=== PATIENT | female | born 1935 | race Caucasian/White ===

== ENCOUNTER 2022-08-04 11:18 | Inpatient (IN) ==
--- NOTE | 2022-08-04 12:07 | XRay Report ---
SINGLE VIEW CHEST CLINICAL HISTORY: Dyspnea FINDINGS: An AP, portable, upright chest radiograph is compared to study dated 08/03/2022. The heart is enlarged noting atherosclerotic calcification of the thoracic aorta. There is prominence of the pu lmonary vascular appear There are small pleural effusions and bibasilar consolidation. No pneumothora x is seen. The skeletal structures are osteopenic. The bony thorax is grossly intact. Arthritic cabrera e is seen in the shoulders. Generative change in scoliosis is noted in the thoracic spine. IMPRESSION: 1. Small pleural effusions and bibasilar consolidation. This is similar to yesterday. 2. Cardiomegaly with prominence of the pulmonary vasculature. Correlate clinically for evidence of fl uid overload/congestive change. ACT 112: Negative or not required by law. Electronically signed by: Rhett Gaxiola M.D. 08/04/2022 12:06 PM
[2022-08-04 13:05] LABS: Basophils # (auto) 0.04 K/uL (0-0.2); Basophils % (auto) 0.5 %; Eosinophils # (auto) 0.03 K/uL (0-0.50); Eosinophils % (auto) 0.4 %; Hematocrit (blood only) 34.7 % (34.1-44.9); Hemoglobin 11.7 g/dl (12.0-16.0); Immature Granulocytes # (auto) 0.02 K/uL (0.00-0.02); Immature Granulocytes % (auto) 0.3 %; Lymphocytes # (auto) 1.39 K/uL (1.2-3.4); Lymphocytes % (auto) 18.2 %; Mean Corpuscular Hemoglobin 31.4 pg (25.0-34.0); Mean Corpuscular Hgb Conc 33.7 g/dL (32.0-36.0); Mean Platelet Volume 10.3 fL (9.4-12.3); Monocytes # (auto) 0.49 K/uL (0.24-0.82); Monocytes % (auto) 6.4 %; Neutrophils # (auto) 5.65 K/uL (1.4-6.5); Neutrophils % (auto) 74.2 %; Platelet Count 300 K/uL (130-400); RDW Coefficient of Variation 13.2 % (11.5-14.5); RDW Standard Deviation 45.2 fL (36.4-46.3); Red Blood Count 3.73 M/uL (3.93-5.22); White Blood Count 7.62 K/ul (4.8-10.8)
[2022-08-04 13:15] LABS: INR 1.1 (0.9-1.1); Partial Thromboplastin Time 28.6 Seconds (21.0-31.0); Prothrombin Time 11.2 Seconds (9.0-12.0)
[2022-08-04 13:24] LABS: Alanine Aminotransferase 18 U/L (7-52); Albumin Globulin Ratio 1.5 (0.9-2); Albumin Level 4.3 gm/dl (3.4-5.0); Alkaline Phosphatase 71 U/L (34-104); Anion Gap 7 (3-11); Aspartate Aminotransferase 14 U/L (13-39); BUN Creatinine Ratio 15.9 (10-20); Bilirubin,Total 0.4 mg/dl (0.2-1.0); Blood Urea Nitrogen 13 mg/dl (6-23); Calcium 9.8 mg/dl (8.5-10.1); Carbon Dioxide 27 mmol/L (21-32); Chloride 102 mmol/L (98-107); Est GFR (African American) 75.6 ml/min; Est GFR (Non-African American) 65.3 ml/min; Globulin 2.9 gm/dl (2.5-4.0); Glucose 130 mg/dl (70-99(Fasting)); Potassium 4.1 mmol/L (3.5-5.1); Sodium 136 mmol/L (136-145); Total Protein 7.2 gm/dl (6.0-8.3)
[2022-08-04] MEDS ORDERED: METOPROLOL TARTRATE 1 MG/ML VIAL IV STA ×2 (14:13→15:52)
--- NOTE | 2022-08-04 14:18 | Emergency Department Note ---
Impression & Plan Atrial fibrillation with rapid ventricular response, SOB (shortness of breath), CHF (congestive heart failure) ED Provider Note NAME: BRIANNE VU AGE: 87 SEX: F : 1935 ARRIVES VIA: Walk-In INFORMANT: Patient ED PROVIDER(S): Maury Mane DO CHIEF COMPLAINT: shortness of breath HPI: Patient is an 87-year-old female with past medical history of A. fib RVR on a NOAC that presents to the ER for shortness of breath which has been present since this weekend. It has been gradually getting worse. She notes it is significantly worse with exertion. Does improve with rest. She does not believe its worse with lying flat. Denies any swelling of the legs. No belly pain nausea vomiting or diarrhea. This is similar to the previous episode that she had back in May when she was diagnosed with A. fib. She was seen evaluated here yesterday and her heart rate was slowed down and she was discharged home. She notes she is continued to feel very short of breath. ROS: See above HPI for pertinent positives & negatives. A total of 10 systems reviewed and were otherwise negative. PAST MEDICAL HISTORY:See Below PAST SURGICAL HISTORY:See Below FAMILY HISTORY:See Below SOCIAL HISTORY:See Below HOME MEDICATIONS:See Below ALLERGIES:See Below VITALS:See Below PHYSICAL EXAMINATION: GENERAL: Sitting up in bed, alert, well appearing, well nourished, no distress, non-toxic EYE EXAM: normal conjunctiva. OROPHARYNX: no exudate, no erythema, lips, buccal mucosa, and tongue normal and mucous membranes are moist NECK: supple, no nuchal rigidity, no adenopathy, non-tender LUNGS: Clear to auscultation. Normal chest wall mechanics HEART: Tachycardic, S1 normal and S2 normal ABDOMEN: abdomen soft, non-tender, normo-active bowel sounds, no masses, no re bound or guarding. UPPER EXTREMITIES: upper extremities are grossly normal. LOWER EXTREMITIES: No pitting edema. NEURO EXAM: Normal sensorium, cranial nerves II-XII grossly intact, normal speech, no gross weakness of arms, no gross weakness of legs. MEDICAL DECISION MAKING: Patient is an 87-year-old female who presents the ER for shortness of breath. She found to be in A. fib with RVR. IV was established blood work was obtained. Labs show no significant leukocytosis. Mild anemia 11.7 which is consistent with yesterday's blood work. INR unremarkable. BMP along with LFTs bilirubin was unremarkable. Troponin was negative. COVID-negative. EKG consistent with A. fib RVR. Chest x-ray with CHF. She was given dose of IV Lopressor. She was updated bedside. Discussed with hospitalist for further evaluation for A. destiny with RVR and CHF. Heart rate following 5 mg IV Lopressor trended down to the low 100s-110s. Triage Nursing notes reviewed. Limited review of prior medical records performed Vital Signs: reviewed and remarkable for HTN and tachy Differential diagnosis: Differential diagnoses includes but is not limited to pneumonia, bronchitis, COPD/Asthma exacerbation, pneumothorax, pulmonary embolism, congestive heart failure, acute coronary syndrome ER treatment provided: See below Diagnostics interpreted by me: ECG: A. destiny RVR rate of 114 Normal axis Poor baseline QTC 438 Cardiac Monitoring: An order was placed for continuous cardiac monitoring. The monitor shows a rate of 129 with afib rhythm. Laboratory studies: As stated above and show below. Imaging studies: Portable AP upright 1 view the chest shows pleural effusions and cephalization Consultation(s): Discussed with Jenifer from [facility] for further evaluation Procedures: none Critical Care: I have personally spent 31 minutes of critical care time in the direct management of this patient. This includes bedside care, interpretation of diagnostic studies, and testing, discussion with consultants, patient, and family members, and other required patient management activities. This 31 minutes is in excess of all separately billable procedures. Past Med/Surg History Medical History (Updated 08/04/22 @ 18:36 by Maury Mane DO) Atrial fibrillation with rapid ventricular response CKD stage 3 due to type 1 diabetes mellitus High cholesterol HTN (hypertension) Hypothyroidism Surgical History (Updated 08/04/22 @ 14:37 by Gertrudis Do PA-C) Hx of cataract surgery bilateral S/P thyroid surgery Family History (Updated 08/04/22 @ 15:12 by Gertrudis Do PA-C) Mother Heart disease Father Heart disease Brother Heart disease Cancer Squamous cell carcinoma of the mouth, hx of chewing tobacco Social History (Updated 08/04/22 @ 15:15 by Gertrudis Do PA-C) Smoking Status: Never smoker Second Hand Exposure: No; Do You Dip or Chew Tobacco: No; Tobacco Cessation Education Requested by Patient: No Hx Alcohol Use: No Hx Substance Use: No Preferred Language: Anguillan Communication Ability: Effective Consultant Technology Required: No Beliefs That Will Affect Care: None Current Living Situation: Family Other Information That Helps Us Care for You: No Feels Safe at Home: Yes Safety Concerns: Feels Safe At This Time Assistive Devices: Denture - Upper, Denture - Lower and Glasses Allergies Allergies Allergy/AdvReac Type Severity Reaction Status Date / Time No Known Allergies Allergy Verified 08/04/22 15:03 Home Meds Home Medications Medication Instructions Recorded Confirmed alendronate 70 mg tablet 70 mg PO WK 05/24/22 08/04/22 amlodipine 5 mg tablet 5 mg PO DAILY 05/24/22 08/04/22 atorvastatin 20 mg tablet 20 mg PO QPM 05/24/22 08/04/22 enalapril maleate 10 mg tablet 10 mg PO QAM 05/24/22 08/04/22 levothyroxine 125 mcg tablet 125 mcg PO DAILYBB 05/24/22 08/04/22 Previous Rx's Medication Instructions Recorded apixaban 5 mg tablet (Eliquis) 5 mg PO BID #60 tabs 05/24/22 carvedilol 12.5 mg tablet (Coreg) 12.5 mg PO BID #60 tabs 05/24/22 Results & Data (ED) Vital Signs Vital Signs - 24 hr 08/04/22 11:20 08/04/22 13:35 08/04/22 13:44 Temperature 36.8 C Temperature Source Temporal Artery Scan Pulse Rate 109 H Pulse Rate [Finger] 123 H Respiratory Rate 18 20 Blood Pressure 117/80 Blood Pressure [Right Arm] 162/107 H Blood Pressure Mean 92 Blood Pressure Mean [Right Arm] 125 Pulse Oximetry 94 94 94 Oxygen Delivery Method Room Air Room Air Room Air Sepsis Recent Fever Within 48 Hours No Sepsis New/Unexplained Change in Mental Status No Sepsis Action Taken by Nursing No Action Required 08/04/22 14:24 Temperature Temperature Source Pulse Rate 115 H Pulse Rate [Finger] Respiratory Rate Blood Pressure 162/107 H Blood Pressure [Right Arm] Blood Pressure Mean Blood Pressure Mean [Right Arm] Pulse Oximetry Oxygen Delivery Method Sepsis Recent Fever Within 48 Hours Sepsis New/Unexplained Change in Mental Status Sepsis Action Taken by Nursing Laboratory Data Result diagrams: 08/04/22 12:55 08/04/22 12:55 Lab Results 08/04/22 08/04/22 08/04/22 Range/Units 12:55 12:55 12:55 WBC 7.62 (4.8-10.8) K/ul RBC 3.73 L (3.93-5.22) M/uL Hgb 11.7 L (12.0-16.0) g/dl Hct 34.7 (34.1-44.9) % MCV 93.0 (80.0-100.0) fL MCH 31.4 (25.0-34.0) pg MCHC 33.7 (32.0-36.0) g/dL RDW Std Deviation 45.2 (36.4-46.3) fL RDW Coeff of Cheri 13.2 (11.5-14.5) % Plt Count 300 (130-400) K/uL MPV 10.3 (9.4-12.3) fL Immature Gran % (Auto) 0.3 % Neut % (Auto) 74.2 % Lymph % (Auto) 18.2 % [place] % (Auto) 6.4 % Eos % (Auto) 0.4 % Baso % (Auto) 0.5 % Neut # (Auto) 5.65 (1.4-6.5) K/uL Lymph # (Auto) 1.39 (1.2-3.4) K/uL [place] # (Auto) 0.49 (0.24-0.82) K/uL Eos # (Auto) 0.03 (0-0.50) K/uL Baso # (Auto) 0.04 (0-0.2) K/uL Immature Gran # (Auto) 0.02 (0.00-0.02) K/uL PT 11.2 (9.0-12.0) Seconds INR 1.1 (0.9-1.1) APTT 28.6 (21.0-31.0) Seconds PTT Ratio 1.0 Sodium 136 (136-145) mmol/L Potassium 4.1 (3.5-5.1) mmol/L Chloride 102 (98-107) mmol/L Carbon Dioxide 27 (21-32) mmol/L Anion Gap 7 (3-11) BUN 13 (6-23) mg/dl Creatinine 0.82 (0.6-1.2) mg/dl Est Cr Clr Drug Dosing Not Reportable Est GFR ( Amer) 75.6 ml/min Est GFR (Non-Af Amer) 65.3 ml/min BUN/Creatinine Ratio 15.9 (10-20) Glucose 130 H (70-99(Fasting)) mg/dl Calcium 9.8 (8.5-10.1) mg/dl Magnesium 2.0 (1.7-2.4) mg/dl Total Bilirubin 0.4 (0.2-1.0) mg/dl AST 14 (13-39) U/L ALT 18 (7-52) U/L Alkaline Phosphatase 71 (34-104) U/L Troponin I High Sens (0-14) pg/ml Total Protein 7.2 (6.0-8.3) gm/dl Albumin 4.3 (3.4-5.0) gm/dl Globulin 2.9 (2.5-4.0) gm/dl Albumin/Globulin Ratio 1.5 (0.9-2) SARS-CoV-2, RNA, NAAT (NEGATIVE) 08/04/22 08/04/22 Range/Units 12:55 14:25 WBC (4.8-10.8) K/ul RBC (3.93-5.22) M/uL Hgb (12.0-16.0) g/dl Hct (34.1-44.9) % MCV (80.0-100.0) fL MCH (25.0-34.0) pg MCHC (32.0-36.0) g/dL RDW Std Deviation (36.4-46.3) fL RDW Coeff of Cheri (11.5-14.5) % Plt Count (130-400) K/uL MPV (9.4-12.3) fL Immature Gran % (Auto) % Neut % (Auto) % Lymph % (Auto) % [place] % (Auto) % Eos % (Auto) % Baso % (Auto) % Neut # (Auto) (1.4-6.5) K/uL Lymph # (Auto) (1.2-3.4) K/uL [place] # (Auto) (0.24-0.82) K/uL Eos # (Auto) (0-0.50) K/uL Baso # (Auto) (0-0.2) K/uL Immature Gran # (Auto) (0.00-0.02) K/uL PT (9.0-12.0) Seconds INR (0.9-1.1) APTT (21.0-31.0) Seconds PTT Ratio Sodium (136-145) mmol/L Potassium (3.5-5.1) mmol/L Chloride (98-107) mmol/L Carbon Dioxide (21-32) mmol/L Anion Gap (3-11) BUN (6-23) mg/dl Creatinine (0.6-1.2) mg/dl Est Cr Clr Drug Dosing Est GFR ( Amer) ml/min Est GFR (Non-Af Amer) ml/min BUN/Creatinine Ratio (10-20) Glucose (70-99(Fasting)) mg/dl Calcium (8.5-10.1) mg/dl Magnesium (1.7-2.4) mg/dl Total Bilirubin (0.2-1.0) mg/dl AST (13-39) U/L ALT (7-52) U/L Alkaline Phosphatase (34-104) U/L Troponin I High Sens 6.8 (0-14) pg/ml Total Protein (6.0-8.3) gm/dl Albumin (3.4-5.0) gm/dl Globulin (2.5-4.0) gm/dl Albumin/Globulin Ratio (0.9-2) SARS-CoV-2, RNA, NAAT NEGATIVE (NEGATIVE) Administered Medications Metoprolol Tartrate (Metoprolol Tartrate 25 Mg Tab) 25 mg PO QID [facility] Stop: 09/03/22 16:59 Last Admin: 08/04/22 17:43 Dose: 25 mg Documented By: TU Discontinued Medications Carvedilol (Carvedilol 12.5 Mg Tab) 12.5 mg PO NOW ONE Stop: 08/04/22 15:53 Last Admin: 08/04/22 18:29 Dose: Not Given Documented By: KJS Metoprolol Tartrate (Metoprolol Tartrate 1 Mg/Ml Vial) 5 mg IV NOW STA Stop: 08/04/22 14:14 Last Admin: 08/04/22 14:24 Dose: 5 mg Documented By: QGV Metoprolol Tartrate (Metoprolol Tartrate 1 Mg/Ml Vial) 5 mg IV NOW STA Stop: 08/04/22 15:53 Last Admin: 08/04/22 16:27 Dose: 5 mg Documented By: TU Metoprolol Tartrate (Metoprolol Tartrate 25 Mg Tab) 25 mg PO ONE ONE Stop: 08/04/22 16:43 Last Admin: 08/04/22 18:29 Dose: Not Given Documented By: TU Imaging Data Radiologist's Impression: Chest X-Ray 08/04/22 11:24 SINGLE VIEW CHEST CLINICAL HISTORY: Dyspnea FINDINGS: An AP, portable, upright chest radiograph is compared to study dated 08/03/2022. The heart is enlarged noting atherosclerotic calcification of the thoracic aorta. There is prominence of the pulmonary vascular appear There are small pleural effusions and bibasilar consolidation. No pneumothorax is seen. The skeletal structures are osteopenic. The bony thorax is grossly intact. Arthritic change is seen in the shoulders. Generative change in scoliosis is noted in the thoracic spine. IMPRESSION: 1. Small pleural effusions and bibasilar consolidation. This is similar to yesterday. 2. Cardiomegaly with prominence of the pulmonary vasculature. Correlate clinically for evidence of fluid overload/congestive change. ACT 112: Negative or not required by law. Electronically signed by: Rhett Gaxiola M.D. 08/04/2022 12:06 PM Discharge Plan Visit Data Chief Complaint: Shortness of Breath/Dyspnea Stated Complaint: SOB, NUMBNESS IN LEFT LEG ED Provider: Maury Mane Discharge Problem: Atrial fibrillation with rapid ventricular response, SOB (shortness of breath), CHF (congestive heart failure) Patient Disposition: Admitted As Inpatient Discharge Instructions Interventions: ED Discharge Assessment Last Done: 08/04/22 15:50
--- NOTE | 2022-08-04 14:40 | History & Physical Report ---
Date of Service August 04, 2022 Assessment & Plan (1) SOB (shortness of breath): (2) Atrial fibrillation with rapid ventricular response: (3) HTN (hypertension): (4) HLD (hyperlipidemia): Plan: This is an 87-year-old female with PMHx of A. fib with RVR that was diagnosed in May 2022, HTN, HLD, CKD stage III, hypothyroidism presents to the hospital with worsening shortness of breath on exertion. She was in the ER yesterday with similar symptoms including fatigue and shortness of breath found to be in Afib with RVR in 120s, was treated with IV cardizem and responded well. Was discharged home from ER yesterday. - Admit to PCU - Given lopressor IV in the ER, trialed cardizem IV push yesterday which improved her rates. No improvement with first dose of lopressor 5 mg IV - Continue on carvedilol 12.5 mb BID - will give one additional dose of carv edilol 12.5 mg now and Lopressor 5 mg IV now. Possible that we can increase carvedilol to 25 mg BID if works well. If no improvement in HR or BP drops will switch to cardizem gtt. - Consult cardiology- Follows with Dr. Dunbar as outpatient cardiology - Continue amlodipine and enalapril - Anticoagulated with Eliquis 5 mg BID - Last 2D echo was completed on 07/06/2022, showed LVEF of 60%, diastolic left ventricular dysfunction, mild mitral regurg. - Dry weight of 145 lbs, does not appear volume overloaded clinically but with CXR results with pulmonary vasc congestion she may benefit from a small dose of diuretic - will hold off for now. (5) CKD stage 3 due to type 1 diabetes mellitus: Plan: - Today Cr. of 0.82, BUN 13 appears her baseline is 1.0-1.2, BUN 14-16 - cont Enalapril 10 mg QAM and amlodipine 5 mg daily (6) Hypothyroidism: Plan: - TSH was 0.3 on 06/08/2022, will recheck with recurrent afib with RVR - Cont levothyroxine 125 mcg daily DVT ppx: - teds, scds, Eliquis BID CODE: Full code Dispo: From home, likely to remain in the hospital x 1-2 days History of Present Illness Chief Complaint: Shortness of breath Primary Care Provider: Victorino Coley MD This is an 87-year-old female with PMHx of James destiny with RVR that was diagnosed in May 2022, HTN, HLD, CKD stage III, hypothyroidism presents to the hospital with worsening shortness of breath. She was in the ER yesterday with similar symptoms including fatigue and shortness of breath. Yesterday she was treated with IV Cardizem x2 in the ER and discussion was held with [facility] cardiology and patient had symptom improvement with James fib and heart rate in the 80s at her time of discharge, with no further cardiac symptoms. She reports having worsening shortness of breath which worsened since last Tuesday and has progressed. She feels doing basic ADLs such as climbing a flight of 14 stairs is difficult. She denies lightheadedness, dizziness or chest pain. Denies orthopnea or recent weight gain. She reports normally weighing 145 lb and was this yesterday, denies any complaint of edema in legs or hands. She does not require any supplemental O2 at baseline. Pt considers herself very physically active. Previously she used to walk a lot, walking a mile to work and back home every day, and always was walking several miles per day. She reports hx of constipation intermittently, last BM this morning. No issues with urination. Has complaints of burping when she lays down at night most nights. She took all her routinely scheduled medications this morning. Allergies Allergy/AdvReac Type Severity Reaction Status Date / Time No Known Allergies Allergy Verified 08/04/22 15:03 Home Medications Medication Instructions Recorded Confirmed Type alendronate 70 mg tablet 70 mg PO WK 05/24/22 08/04/22 History amlodipine 5 mg tablet 5 mg PO DAILY 05/24/22 08/04/22 History apixaban 5 mg tablet (Eliquis) 5 mg PO BID #60 tabs 05/24/22 08/04/22 Rx atorvastatin 20 mg tablet 20 mg PO QPM 05/24/22 08/04/22 History carvedilol 12.5 mg tablet (Coreg) 12.5 mg PO BID #60 tabs 05/24/22 08/04/22 Rx enalapril maleate 10 mg tablet 10 mg PO QAM 05/24/22 08/04/22 History levothyroxine 125 mcg tablet 125 mcg PO DAILYBB 05/24/22 08/04/22 History Past Med/Surg History Medical History Atrial fibrillation with rapid ventricular response CKD stage 3 due to type 1 diabetes mellitus High cholesterol HTN (hypertension) Hypothyroidism Surgical History Hx of cataract surgery bilateral S/P thyroid surgery Family History Mother Heart disease Father Heart disease Brother Heart disease Cancer Squamous cell carcinoma of the mouth, hx of chewing tobacco Social History Smoking Status: Never smoker Second Hand Exposure: No; Do You Dip or Chew Tobacco: No; Tobacco Cessation Education Requested by Patient: No Hx Alcohol Use: No Hx Substance Use: No Preferred Language: Georgian Communication Ability: Effective Cartographic Technician Required: No Beliefs That Will Affect Care: None Current Living Situation: Family Other Information That Helps Us Care for You: No Feels Safe at Home: Yes Safety Concerns: Feels Safe At This Time Assistive Devices: Denture - Upper, Denture - Lower and Glasses Review of Systems Review of Systems: Constitutional: No fever, sweats or chills Eyes: No diplopia, no worsening or blurred vision ENT: normal hearing, no trouble swallowing Respiratory: No cough, sputum, + dyspnea on exertion, but not at rest Cardiovascular: No chest pain, tightness or palpitations Abdomen: No pain, nausea, vomiting, diarrhea or constipation Musculoskeletal: No joint pain, calf pain, swelling Neurologic: No weakness, numbness/tingling, or balance problems Psychiatric: No anxiety or depression Skin: No rash or itch Physical Exam Physical Exam: General: awake, alert, no apparent distress, appears younger than stated age Head: Normocephalic, atraumatic ENT: PERRL, EOMI, no pharyngeal exudate, mucous membranes moist Chest: Clear to auscultation, on room air, no adventitious breath sounds Cardiac: Irregularly irregular, HR in 100s, no murmur, no JVD, normal peripheral pulses, good capillary refill Abdominal: NABS x 4 quadrants, soft, nondistended, nontender to palpation, no rebound or guarding Back: lipoma over right upper back measuring approx 7cm x 6 cm. Extremities: Normal inspection, no peripheral edema or erythema, calfs nontender to palpation Psych: Normal mood and affect Neuro: AAO x 3, strength intact bilaterally and rated 5/5, no motor deficits, speech is clear, no peripheral sensory deficits Results & Data Results & Data ([facility]) Vital Signs (Past 12 Hours) Vital Signs Temp Pulse Pulse Resp BP BP Pulse Ox 08/04/22 14:24 115 H 162/107 H 08/04/22 13:44 94 08/04/22 13:35 123 H 20 162/107 H 94 08/04/22 11:20 36.8 C 109 H 18 117/80 94 O2 Del Method 08/04/22 14:24 08/04/22 13:44 Room Air 08/04/22 13:35 Room Air 08/04/22 11:20 Room Air Laboratory Results 08/04/22 08/04/22 08/04/22 14:25 12:55 12:55 WBC RBC Hgb Hct MCV MCH MCHC RDW Std Deviation RDW Coeff of Cheri Plt Count MPV Immature Gran % (Auto) Neut % (Auto) Lymph % (Auto) [place] % (Auto) Eos % (Auto) Baso % (Auto) Neut # (Auto) Lymph # (Auto) [place] # (Auto) Eos # (Auto) Baso # (Auto) Immature Gran # (Auto) PT INR APTT PTT Ratio Sodium 136 Potassium 4.1 Chloride 102 Carbon Dioxide 27 Anion Gap 7 BUN 13 Creatinine 0.82 Est Cr Clr Drug Dosing Not Reportable Est GFR ( Amer) 75.6 Est GFR (Non-Af Amer) 65.3 BUN/Creatinine Ratio 15.9 Glucose 130 H Calcium 9.8 Magnesium 2.0 Total Bilirubin 0.4 AST 14 ALT 18 Alkaline Phosphatase 71 Troponin I High Sens 6.8 Total Protein 7.2 Albumin 4.3 Globulin 2.9 Albumin/Globulin Ratio 1.5 SARS-CoV-2, RNA, NAAT NEGATIVE 08/04/22 08/04/22 12:55 12:55 WBC 7.62 RBC 3.73 L Hgb 11.7 L Hct 34.7 MCV 93.0 MCH 31.4 MCHC 33.7 RDW Std Deviation 45.2 RDW Coeff of Cheri 13.2 Plt Count 300 MPV 10.3 Immature Gran % (Auto) 0.3 Neut % (Auto) 74.2 Lymph % (Auto) 18.2 [place] % (Auto) 6.4 Eos % (Auto) 0.4 Baso % (Auto) 0.5 Neut # (Auto) 5.65 Lymph # (Auto) 1.39 [place] # (Auto) 0.49 Eos # (Auto) 0.03 Baso # (Auto) 0.04 Immature Gran # (Auto) 0.02 PT 11.2 INR 1.1 APTT 28.6 PTT Ratio 1.0 Sodium Potassium Chloride Carbon Dioxide Anion Gap BUN Creatinine Est Cr Clr Drug Dosing Est GFR ( Amer) Est GFR (Non-Af Amer) BUN/Creatinine Ratio Glucose Calcium Magnesium Total Bilirubin AST ALT Alkaline Phosphatase Troponin I High Sens Total Protein Albumin Globulin Albumin/Globulin Ratio SARS-CoV-2, RNA, NAAT Diagnostic Findings Chest X-Ray 08/04/22 11:24 SINGLE VIEW CHEST CLINICAL HISTORY: Dyspnea FINDINGS: An AP, portable, upright chest radiograph is compared to study dated 08/03/2022. The heart is enlarged noting atherosclerotic calcification of the thoracic aorta. There is prominence of the pulmonary vascular appear There are small pleural effusions and bibasilar consolidation. No pneumothorax is seen. The skeletal structures are osteopenic. The bony thorax is grossly intact. Arthritic change is seen in the shoulders. Generative change in scoliosis is noted in the thoracic spine. IMPRESSION: 1. Small pleural effusions and bibasilar consolidation. This is similar to yesterday. 2. Cardiomegaly with prominence of the pulmonary vasculature. Correlate clinically for evidence of fluid overload/congestive change. ACT 112: Negative or not required by law. Electronically signed by: Rhett Gaxiola M.D. 08/04/2022 12:06 PM ECG Additional Comments: 04-AUG-2022 12:54:57 [facility]-EDSTAT ROUTINE RETRIEVAL Poor data quality, interpretation may be adversely affected Atrial fibrillation with rapid ventricular response Low voltage QRS Cannot rule out Anterior infarct (cited on or before 03-AUG-2022) Abnormal ECG When compared with ECG of 03-AUG-2022 15:38, Questionable change in QRS axis 25mm/s10mm/[id number] 241CID: 3Unconfirmed Vent. rate 114 BPM HI interval * ms QRS duration 64 ms QT/QTc 318/438 ms Code Status & VTE Plan Code Status FULL CODE - discussed with the patient at bedside Supervising Physician Co-Signing Physician Notes I have seen and examined the patient and have discussed the case with the provider above. I agree with the assessment and plan as stated. 87 yo F with recently diagnosed atrial fibrillation presents with rapid ventricular response. She denies chest pain or SOB at rest. She has exertional shortness of breath. Heart rate has improved with one dose of Lopressor but still in the one teens. Physical reveals an active, energetic female in NAD without conversational dyspnea. She is alert and oriented and appears younger than her stated age. Cardiac exam reveals irregular rate and irregular rhythm with no murmurs. Pulmonary auscultation reveals diminished breath sounds throughout without crackles or wheezes. She has no peripheral edema. Labwork reviewed and unremarkable. CXR reveals small pleural effusions and bibasilar consolidation with a prominence in pulmonary vasculature consistent with possible congestive changes. She has no coughing, fever, or chills that may be consistent with pneumonia. Overall she presents with afib with RVR and will continue on anticoagulation with additional rate control as outlined above. For pulmonary findings on imaging, may consider diuretics but would defer this to cardiology. Cont monitoring in the PCU. DO Nikhil
[2022-08-04] MEDS ORDERED: carvediloL 12.5 MG TAB PO ONE (15:52)
[2022-08-04] MEDS ORDERED: ACETAMINOPHEN 325 MG TAB PO PRN (16:20)
[2022-08-04] MEDS ORDERED: ONDANSETRON INJ 2 MG/ML 2 ML VIAL IV PRN (16:20)
[2022-08-04] MEDS ORDERED: METOPROLOL TARTRATE 25 MG TAB PO ONE (16:42)
--- NOTE | 2022-08-04 16:47 | Communication Note ---
Date of Service: August 04, 2022 Full cardiology consultation to follow. Chart reviewed remotely as I am off site at present at the outpatient cardiology clinic. Pt known to the undersigned having most recently been seen on 06/22/2022. Will transition her from carvedilol to metoprolol tartrate, start metoprolol tartrate 25 milligrams four times daily, next dose of 1700. She would just received a dose of IV metoprolol. Her previously scheduled doses of carvedilol have been discontinued. I spoke to the patient's nurse and pharmacy to clarify the orders. Continue Eliquis for stroke prophylaxis.
--- NOTE | 2022-08-04 16:57 | Electrocardiogram Report ---
Test Reason : Blood Pressure : / mmHG Vent. Rate : 114 BPM Atrial Rate : 120 BPM P-R Int : 000 ms QRS Dur : 064 ms QT Int : 318 ms P-R-T Axes : 000 013 025 degrees QTc Int : 438 ms Poor data quality, interpretation may be adversely affected Atrial fibrillation with rapid ventricular response Low voltage QRS Cannot rule out Anterior infarct (cited on or before 03-AUG-2022) Abnormal ECG When compared with ECG of 03-AUG-2022 15:38, Questionable change in QRS axis Confirmed by Pasquale Elias ([id number] on 08/04/2022 4:57:07 PM Referred By: Confirmed By:Pasquale Elias
[2022-08-04] MEDS: METOPROLOL TARTRATE 25 MG TAB PO SCH ×2 (17:43→19:51)
[2022-08-04] MEDS: APIXABAN 5 MG TABLET PO SCH (19:50)
[2022-08-04] MEDS: ATORVASTATIN 20 MG TAB PO SCH (19:50)
[2022-08-04] MEDS ORDERED: carvediloL 12.5 MG TAB PO SCH (21:00)
[2022-08-05] MEDS: LEVOTHYROXINE SODIUM 125 MCG TABLET PO SCH (06:07)
[2022-08-05 07:25] LABS: BUN Creatinine Ratio 18.5 (10-20); Calcium 8.9 mg/dl (8.5-10.1); Chol HDL Ratio 3.1 (0-5); Creatinine Clr Calc Pharmacy 42.9 ml/min; Est GFR (African American) 76.8 ml/min; Est GFR (Non-African American) 66.2 ml/min; Magnesium 1.9 mg/dl (1.7-2.4); Potassium 4.3 mmol/L (3.5-5.1)
[2022-08-05 08:45] LABS: Estimated Average Glucose 137 mg/dl; Hemoglobin A1C 6.4 % (4.5-5.6)
[2022-08-05] MEDS: APIXABAN 5 MG TABLET PO SCH ×2 (08:55→19:47)
[2022-08-05] MEDS: METOPROLOL TARTRATE 25 MG TAB PO SCH ×4 (08:55→19:48)
[2022-08-05] MEDS ORDERED: AMIODARONE / D5W 150 MG/100 ML BAG IV STA (09:07)
[2022-08-05] MEDS ORDERED: STAT IV Infusion **Titration per Protocol STA (09:07)
[2022-08-05] MEDS ORDERED: 0.2 MICRON FILTER SET 1 EACH IV STA (09:07)
[2022-08-05] MEDS ORDERED: AMIODARONE IV BOLUS & DRIP IV STA (09:07)
[2022-08-05] MEDS ORDERED: FUROSEMIDE INJ 20 MG/2 ML VIAL IV ONE (09:08)
[2022-08-05] MEDS ORDERED: AMIODARONE / D5W 360 MG/200 ML BAG IV ONE (09:17)
--- NOTE | 2022-08-05 09:51 | Cardiology Consultation ---
Date of Consultation August 05, 2022 Assessment & Plan (1) Atrial fibrillation with rapid ventricular response: -Given symptoms and CXR findings of small bilateral pleural effusions, will proceed with furosemide 20 mg IV x 1. -Carvedilol discontinued in favor of metoprolol. -rhythm control strategy may prove to be ineffective given severe left atrial enlargement, but will proceed with a trial of amiodarone and metoprolol as amiodarone if not effective from a rhythm control standpoint may improved symp toms from a rate control standpoint. Baseline TSH , LFTS, CXR acceptable for amiodarone therapy. History of hypothyroidism noted. Had echo last month. No need to repeat at present. History of Present Illness Attending Physician: Es Li MD History of Present Illness Elza Beatty is an 87 year old female seen in cardiology consultation per the request of Zarina Do PA-C For the evaluation of subjective complaint of shortness of breath with exertion exertion and findings of atrial fibrillation with rapid ventricular response. The patient's recent history dates back to 05/24/2022 when she presented to the emergency room with chief complaint of generalized weakness and lightheadedness and was diagnosed with atrial fibrillation with rapid ventricular response she received a dose of IV metoprolol with spontaneous conversion to sinus rhythm. She was ultimately discharged with her outpatient carvedilol dose having been titrated to 12.5 mg twice daily, and with treatment including Eliquis. At the time for outpatient cardiology follow-up with [facility] several weeks ago, on 06/22/22 , rate controlled atrial fibrillation was present on EKG. A follow up echocardiogram performed 07/06/22 reveals LVEF of 60% , severe left atrial enlargement. She then experienced symptoms of shortness of breath with exertion onset about a week ago, prompting emergency room assessment on 08/03/2022 at which time she was found to be back in atrial fibrillation. She received 2 doses of IV diltiazem with improved rate control and symptoms and was discharged. She still felt poorly yesterday however prompting another trip to the emergency room EKG performed on arrival yesterday revealed atrial fibrillation 114 bpm. She has been admitted overnight, EKG this morning revealing atrial fibrillation at 98 bpm. Telemetry revealing atrial fibrillation at 100 bpm at rest, with rates up to 160 bpm with minimal physical exertion. At time my assessment, the patient was resting comfortably without acute distress. Allergies Allergy/AdvReac Type Severity Reaction Status Date / Time No Known Allergies Allergy Verified 08/04/22 15:03 Home Medications Medication Instructions Recorded Confirmed Type alendronate 70 mg tablet 70 mg PO WK 05/24/22 08/04/22 History amlodipine 5 mg tablet 5 mg PO DAILY 05/24/22 08/04/22 History apixaban 5 mg tablet (Eliquis) 5 mg PO BID #60 tabs 05/24/22 08/04/22 Rx atorvastatin 20 mg tablet 20 mg PO QPM 05/24/22 08/04/22 History carvedilol 12.5 mg tablet (Coreg) 12.5 mg PO BID #60 tabs 05/24/22 08/04/22 Rx enalapril maleate 10 mg tablet 10 mg PO QAM 05/24/22 08/04/22 History levothyroxine 125 mcg tablet 125 mcg PO DAILYBB 05/24/22 08/04/22 History Patient History Medical History Atrial fibrillation with rapid ventricular response CKD stage 3 due to type 1 diabetes mellitus High cholesterol HTN (hypertension) Hypothyroidism Surgical History Hx of cataract surgery bilateral S/P thyroid surgery Family History Mother Heart disease Father Heart disease Brother Heart disease Cancer Squamous cell carcinoma of the mouth, hx of chewing tobacco Social History Smoking Status: Never smoker Second Hand Exposure: No; Do You Dip or Chew Tobacco: No; Tobacco Cessation Education Requested by Patient: No Hx Alcohol Use: No Hx Substance Use: No Preferred Language: Uzbek Communication Ability: Effective Interactive Media Specialist Required: No Beliefs That Will Affect Care: None Current Living Situation: Family Other Information That Helps Us Care for You: No Feels Safe at Home: Yes Safety Concerns: Feels Safe At This Time Assistive Devices: Denture - Upper, Denture - Lower and Glasses Review of Systems Review of Systems: All systems reviewed & are unremarkable except as noted in HPI & below Physical Exam Constitutional: WD/WN, vitals as above Neck: trachea midline, no thyromegaly Respiratory: + abnormal respiratory effort, no respiratory distress, no labored breathing and no cough Auscultation: + diminished lung sounds (Mildly decreased breath sounds in the bases); no crackles and no rales Gastrointestinal (Abdomen): normal bowel sounds, soft, nontender, no hepatosplenomegaly Neurologic: PERRL, EOMI, accommodation nl, no face palsy, no dysarthria Results & Data ([facility]) Vital Signs (Past 12 Hours) Vital Signs Temp Pulse Resp BP Pulse Ox O2 Del Method 08/05/22 07:21 36.6 C 88 18 127/82 93 Room Air 08/05/22 03:02 98 H 08/05/22 02:44 36.7 C 106 H 18 147/89 H 93 Room Air 08/04/22 22:39 37.0 C 80 20 142/84 H 93 Room Air Laboratory Results Cardiac Enzymes 08/04/22 08/04/22 Range/Units 12:55 12:55 AST 14 (13-39) U/L Troponin I High Sens 6.8 (0-14) pg/ml Coagulation 08/04/22 Range/Units 12:55 PT 11.2 (9.0-12.0) Seconds APTT 28.6 (21.0-31.0) Seconds Lipids 08/05/22 Range/Units 06:02 Triglycerides 85 (0-150) mg/dl Cholesterol 107 (0-200) mg/dl HDL Cholesterol 35 mg/dl Cholesterol/HDL Ratio 3.1 (0-5) CBC 08/04/22 Range/Units 12:55 WBC 7.62 (4.8-10.8) K/ul RBC 3.73 L (3.93-5.22) M/uL Hgb 11.7 L (12.0-16.0) g/dl Hct 34.7 (34.1-44.9) % Plt Count 300 (130-400) K/uL Neut # (Auto) 5.65 (1.4-6.5) K/uL Lymph # (Auto) 1.39 (1.2-3.4) K/uL Caroline # (Auto) 0.49 (0.24-0.82) K/uL Eos # (Auto) 0.03 (0-0.50) K/uL Baso # (Auto) 0.04 (0-0.2) K/uL Comprehensive Metabolic Panel 08/04/22 08/05/22 Range/Units 12:55 06:02 Sodium 136 137 (136-145) mmol/L Potassium 4.1 4.3 (3.5-5.1) mmol/L Chloride 102 104 (98-107) mmol/L Carbon Dioxide 27 28 (21-32) mmol/L BUN 13 15 (6-23) mg/dl Creatinine 0.82 0.81 (0.6-1.2) mg/dl Glucose 130 H 106 H (70-99(Fasting)) mg/dl Calcium 9.8 8.9 (8.5-10.1) mg/dl AST 14 (13-39) U/L ALT 18 (7-52) U/L Alkaline Phosphatase 71 (34-104) U/L Total Protein 7.2 (6.0-8.3) gm/dl Albumin 4.3 (3.4-5.0) gm/dl Diagnostic Findings Summary of ttecho performed as outpatient on 07/06/22: Left Ventricle The left ventricle was adequately visualized. The left ventricular systolic function is normal. Calculated LV ejection Fraction = 60% (bi-plane method of discs). The left ventricular cavity size is normal. The LV wall thickness is mildly increased (concentric). Left Ventricular Wall Motion The left ventricular wall motion is normal. Right Ventricle The right ventricular cavity size is normal (basal dimension < 4.2 cm RV apical 4 chamber view). The right ventricular systolic function is normal as assessed by tricuspid annular plane systolic excursion (TAPSE) (normal >1.7 cm). Atria The left atrium is severely enlarged (>48 ml/m^2,).
--- NOTE | 2022-08-05 11:58 | Electrocardiogram Report ---
Test Reason : Blood Pressure : / mmHG Vent. 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
--- NOTE | 2022-08-05 13:53 | Hospitalist Progress Note ---
Date of Service August 05, 2022 Assessment & Plan (1) SOB (shortness of breath): (2) Atrial fibrillation with rapid ventricular response: (3) HTN (hypertension): (4) HLD (hyperlipidemia): Plan: This is an 87-year-old female with PMHx of A. fib with RVR that was diagnosed in May 2022, HTN, HLD, CKD stage III, hypothyroidism presents to the hospital with worsening shortness of breath on exertion. She was in the ER on 08/03/22 with similar symptoms including fatigue and shortness of breath found to be in Afib with RVR in 120s, was treated with IV cardizem and responded well. EKG performed on arrival yesterday revealed atrial fibrillation 114 bpm. Received lopressor IV and cardizem 10mg x1 in the ER She was placed on carvedilol placed BID 12.5mg on admission Last 2D echo was completed on 07/06/2022, showed LVEF of 60%, diastolic left ventricular dysfunction, mild mitral regurg. cardiology on board Case discussed with cardiology that recommended to start on amiodarone drip Carvedilol changed to metoprolol 25mg QID Continue Eliquis 5mg BID Continue monitor closely in telemetry Pleural effusion Complaint of SOB with exertion CXR showed small pleural effusions and bibasilar consolidation. Lasix 20mg IV x 1 given today Continue monitor (5) CKD stage 3 due to type 1 diabetes mellitus: Plan: Creatinine 0.81 Stable (6) Hypothyroidism: Plan: Most recent TSH WNL Continue levothyroxine 125 mcg daily DVT ppx: Continue Eliquis BID CODE: Full code Disposition Continue monitor in telemetry Admission and Anticipated Discharge Date Admission Date: August 04, 2022 Subjective Pt was seen and examined for follow up of Afib Lying in bed with no acute distress Pt aid that she continues to have SOB with exertion Denies any chest pain, dizziness and palpitation Review of Systems Review of Systems: All systems reviewed & are unremarkable except as noted in Subjective Physical Exam Physical Exam: General- No acute distress Head- atraumatic Eyes- PERRL, EOMI, ENT- oropharynx clear Neck- supple, no JVD Lungs- +diminished BS Heart- irregular rhythm; no murmur Abdomen- normal bowel sounds, soft, nontender Extremities- no calf tenderness Neuro- alert, oriented x 3; PERRL, EOMI; no facial palsy; no dysarthria Skin- warm & dry Results & Data Results & Data ([facility]) Vital Signs (Past 12 Hours) Vital Signs Temp Pulse Pulse Resp BP Pulse Ox O2 Del Method 08/05/22 12:24 37.1 C 111 H 18 113/74 95 Room Air 08/05/22 10:13 121 H 08/05/22 09:42 Room Air 08/05/22 07:21 36.6 C 88 18 127/82 93 Room Air 08/05/22 03:02 98 H 08/05/22 02:44 36.7 C 106 H 18 147/89 H 93 Room Air
[2022-08-05] MEDS: AMIODARONE / D5W 360 MG/200 ML BAG IV SCH (15:14)
[2022-08-05] MEDS: ATORVASTATIN 20 MG TAB PO SCH (19:48)
[2022-08-06] MEDS: AMIODARONE / D5W 360 MG/200 ML BAG IV SCH (02:34)
[2022-08-06] MEDS: LEVOTHYROXINE SODIUM 125 MCG TABLET PO SCH (05:23)
[2022-08-06 07:27] LABS: BUN Creatinine Ratio 16.3 (10-20); Calcium 8.7 mg/dl (8.5-10.1); Creatinine Clr Calc Pharmacy 40.4 ml/min; Est GFR (African American) 71.4 ml/min; Est GFR (Non-African American) 61.6 ml/min
[2022-08-06] MEDS: METOPROLOL TARTRATE 25 MG TAB PO SCH (09:07)
[2022-08-06] MEDS: APIXABAN 5 MG TABLET PO SCH ×2 (09:07→21:07)
--- NOTE | 2022-08-06 09:17 | Cardiology Progress Note ---
Date of Service August 06, 2022 Assessment & Plan (1) Atrial fibrillation with rapid ventricular response: Plan: -Yesterday, after having seen the patient, I reviewed her echocardiogram images which had been obtained as an outpatient in June, independently. Patient with findings of severe left atrial enlargement. I therefore not optimistic that a rhythm control strategy will proved to be successful. -Discontinue IV amiodarone -Change metoprolol to metoprolol succinate 75 mg twice daily -Start short acting diltiazem 30 mg 3 times daily, first dose at 1400, with hold for heart rate less than 60 systolic blood pressure less than 100 -Continue Eliquis for stroke prophylaxis. -Hold off on additional diuretic therapy for now. Admission and Anticipated Discharge Date Admission Date: August 04, 2022 Subjective Patient seen in follow-up of her chief complaint of shortness of breath with exertion, atrial fibrillation with rapid ventricular response. Patient remains in atrial fibrillation, rates mildly elevated in the low 100s at rest despite metoprolol tartrate 25 mg 4 times daily and an amiodarone infusion. She notes significant urine output having received 20 mg of furosemide yesterday. 2.3 L of urine output recorded. Patient still has dyspnea however with walking short distances such as to the restroom. Physical Exam Constitutional: WD/WN, vitals as above Respiratory: no respiratory distress and no labored breathing Auscultation: + diminished lung sounds (Mildly reduced breath sounds bilaterally at the bases); no crackles and no rales Cardiovascular: Rate/Rhythm: + tachycardic and + irregularly irregular Heart Sounds: no murmur Extremities: no edema Gastrointestinal (Abdomen): normal bowel sounds, soft, nontender, no hepatosplenomegaly Neurologic: PERRL, EOMI, accommodation nl, no face palsy, no dysarthria Results & Data ([facility]) Vital Signs (Past 12 Hours) Vital Signs Temp Pulse Resp BP Pulse Ox O2 Del Method 08/06/22 07:00 36.5 C 119 H 16 145/116 H 94 Room Air 08/06/22 02:46 36.5 C 98 H 20 130/101 H 95 Room Air 08/05/22 22:36 36.8 C 97 H 18 140/87 94 Room Air Laboratory Results Comprehensive Metabolic Panel 08/06/22 Range/Units 06:22 Sodium 134 L (136-145) mmol/L Potassium 4.0 (3.5-5.1) mmol/L Chloride 100 (98-107) mmol/L Carbon Dioxide 27 (21-32) mmol/L BUN 14 (6-23) mg/dl Creatinine 0.86 (0.6-1.2) mg/dl Glucose 128 H (70-99(Fasting)) mg/dl Calcium 8.7 (8.5-10.1) mg/dl Intake and Output 08/05/22 08/06/22 08/06/22 22:59 06:59 14:59 Intake Total 400 / 1369.267 389.267 / 1369.267 Output Total 850 / 2300 750 / 2300 Balance -450 / -930.733 -360.733 / -930.733 Intake: IV 200 / 489.267 189.267 / 489.267 Amiodarone / D5w 360 mg In 200 200 / 389.267 189.267 / 389.267 ml @ 0.5 MG/MIN 16.667 mls/hr IV .Q12H [facility] Rx#:[id number] Oral 200 / 880 200 / 880 Output: Urine 850 / 2300 750 / 2300 Other: Weight 65.6 kg Weight Measurement Method Built in [facility]
[2022-08-06] MEDS: METOPROLOL SUCC 25MG EXT REL TAB PO SCH ×2 (10:32→21:07)
[2022-08-06] MEDS: dilTIAZem HCL 30 MG TAB PO SCH ×2 (13:48→21:07)
--- NOTE | 2022-08-06 14:10 | Hospitalist Progress Note ---
Date of Service August 06, 2022 Assessment & Plan (1) SOB (shortness of breath): (2) Atrial fibrillation with rapid ventricular response: (3) HTN (hypertension): (4) HLD (hyperlipidemia): Plan: This is an 87-year-old female with PMHx of A. fib with RVR that was diagnosed in May 2022, HTN, HLD, CKD stage III, hypothyroidism presents to the hospital with worsening shortness of breath on exertion. She was in the ER on 08/03/22 with similar symptoms including fatigue and shortness of breath found to be in Afib with RVR in 120s, was treated with IV cardizem and responded well. EKG performed on arrival yesterday revealed atrial fibrillation 114 bpm. Received lopressor IV and cardizem 10mg x1 in the ER She was placed on carvedilol placed BID 12.5mg on admission Last 2D echo was completed on 07/06/2022, showed LVEF of 60%, diastolic left ventricular dysfunction, mild mitral regurg. cardiology on board Amiodarone drip discontinued today Metoprolol increased to 37.5 mg BID and diltiazem 30mg TID added Continue Eliquis 5mg BID Continue monitor closely in telemetry Pleural effusion Complaint of SOB with exertion CXR showed small pleural effusions and bibasilar consolidation. Lasix 20mg IV x 1 given yesterday Saturated well on RA (5) CKD stage 3 due to type 1 diabetes mellitus: Plan: Creatinine 0.86 Stable (6) Hypothyroidism: Plan: Most recent TSH WNL Continue levothyroxine 125 mcg daily DVT ppx: Continue Eliquis BID CODE: Full code Disposition Continue monitor in telemetry Admission and Anticipated Discharge Date Admission Date: August 04, 2022 Subjective Pt was seen and examined for follow up of Afib Lying in bed with no acute distress Pt said that she did not sleep well last night because her HR was going fast Denies any chest pain, dizziness and SOB Review of Systems Review of Systems: All systems reviewed & are unremarkable except as noted in Subjective Physical Exam Physical Exam: General- No acute distress Head- atraumatic Eyes- PERRL, EOMI, ENT- oropharynx clear Neck- supple, no JVD Lungs- +diminished BS Heart- irregular rhythm; no murmur Abdomen- normal bowel sounds, soft, nontender Extremities- no calf tenderness Neuro- alert, oriented x 3; PERRL, EOMI; no facial palsy; no dysarthria Skin- warm & dry Results & Data Results & Data ([facility]) Vital Signs (Past 12 Hours) Vital Signs Temp Pulse Pulse Pulse Resp BP Pulse Ox 08/06/22 11:31 36.6 C 118 H 19 138/95 96 08/06/22 10:08 101 H 08/06/22 10:04 08/06/22 09:17 120/91 08/06/22 07:00 36.5 C 119 H 16 145/116 H 94 08/06/22 02:46 36.5 C 98 H 20 130/101 H 95 O2 Del Method 08/06/22 11:31 Room Air 08/06/22 10:08 08/06/22 10:04 Room Air 08/06/22 09:17 08/06/22 07:00 Room Air 08/06/22 02:46 Room Air
[2022-08-06] MEDS: ATORVASTATIN 20 MG TAB PO SCH (21:07)
[2022-08-07] MEDS: LEVOTHYROXINE SODIUM 125 MCG TABLET PO SCH (06:30)
[2022-08-07] MEDS: APIXABAN 5 MG TABLET PO SCH ×2 (08:10→21:12)
[2022-08-07] MEDS: dilTIAZem HCL 30 MG TAB PO SCH (08:10)
[2022-08-07] MEDS: METOPROLOL SUCC 25MG EXT REL TAB PO SCH ×2 (08:10→21:12)
--- NOTE | 2022-08-07 11:51 | Cardiology Progress Note ---
Date of Service August 07, 2022 Assessment & Plan (1) Atrial fibrillation with rapid ventricular response: Plan: * Continue metoprolol succinate 25 mg twice daily * Transition diltiazem to diltiazem CD1 120 mg daily, first dose now. * Continue Eliquis 5 mg twice daily for stroke prophylaxis. * Increase activity as tolerated. Patient encouraged to walk. (2) Left atrial enlargement: Plan: * Suggests that atrial fibrillation and perhaps underlying diastolic dysfunction have been present for quite some time and that a rhythm control strategy would likely be ineffective. * Continue rate control and anticoagulation for atrial fibrillation. * Admission and Anticipated Discharge Date Admission Date: August 04, 2022 Subjective Patient seen in cardiology follow-up. Atrial fibrillation observed on telemetry, rates improved, with ventricular rates in the range of 90 to 100 bpm at rest. Overall, patient states that she feels much improved compared to what she did upon presentation to the hospital. She still however notes episodic shortness of breath. Physical Exam Constitutional: WD/WN, vitals as above Neck: trachea midline, no thyromegaly Respiratory: + abnormal respiratory effort, no respiratory distress, no labored breathing and no cough Auscultation: + diminished lung sounds (Mildly reduced breath sounds bilaterally at the bases); no crackles and no rales Cardiovascular: Rate/Rhythm: + tachycardic and + irregularly irregular Heart Sounds: no murmur Extremities: no edema Gastrointestinal (Abdomen): normal bowel sounds, soft, nontender, no hepatos plenomegaly Neurologic: PERRL, EOMI, accommodation nl, no face palsy, no dysarthria Results & Data ([facility]) Vital Signs (Past 12 Hours) Vital Signs Temp Pulse Pulse Resp BP Pulse Ox O2 Del Method 08/07/22 10:53 36.6 C 97 H 18 122/76 94 Room Air 08/07/22 06:59 36.7 C 97 H 18 148/83 H 92 Room Air 08/07/22 03:23 36.5 C 92 H 18 157/79 H 93 Room Air
[2022-08-07] MEDS: dilTIAZem HCL 120 MG CAPCR PO SCH (13:17)
--- NOTE | 2022-08-07 18:00 | Hospitalist Progress Note ---
Date of Service August 07, 2022 Assessment & Plan (1) SOB (shortness of breath): (2) Atrial fibrillation with rapid ventricular response: (3) HTN (hypertension): (4) HLD (hyperlipidemia): Plan: This is an 87-year-old female with PMHx of A. fib with RVR that was diagnosed in May 2022, HTN, HLD, CKD stage III, hypothyroidism presents to the hospital with worsening shortness of breath on exertion. She was in the ER on 08/03/22 with similar symptoms including fatigue and shortness of breath found to be in Afib with RVR in 120s, was treated with IV cardizem and responded well. EKG performed on arrival yesterday revealed atrial fibrillation 114 bpm. Received lopressor IV and cardizem 10mg x1 in the ER She was placed on carvedilol placed BID 12.5mg on admission Last 2D echo was completed on 07/06/2022, showed LVEF of 60%, diastolic left ventricular dysfunction, mild mitral regurg. cardiology on board Amiodarone drip discontinued today Metoprolol succinate increased to 75 mg BID diltiazem changed to extending release 120mg daily Continue Eliquis 5mg BID Continue monitor closely in telemetry Pleural effusion Complaint of SOB with exertion CXR showed small pleural effusions and bibasilar consolidation. received Lasix 20mg x1 during hospital course Saturated well on RA stable (5) CKD stage 3 due to type 1 diabetes mellitus: Plan: Creatinine 0.86 Stable (6) Hypothyroidism: Plan: Most recent TSH WNL Continue levothyroxine 125 mcg daily DVT ppx: Continue Eliquis BID CODE: Full code Disposition Continue monitor in telemetry Admission and Anticipated Discharge Date Admission Date: August 04, 2022 Subjective Pt was seen and examined for follow up of Afib Lying in bed with no acute distress She said she slept well last night Tele monitor showed HR btw 90's to 100's Denies any chest pain, dizziness and palpitation Review of Systems Review of Systems: All systems reviewed & are unremarkable except as noted in Subjective Physical Exam Physical Exam: General- No acute distress Head- atraumatic Eyes- PERRL, EOMI, ENT- oropharynx clear Neck- supple, no JVD Lungs- +diminished BS Heart- irregular rhythm; no murmur Abdomen- normal bowel sounds, soft, nontender Extremities- no calf tenderness Neuro- alert, oriented x 3; PERRL, EOMI; no facial palsy; no dysarthria Skin- warm & dry Results & Data Results & Data ([facility]) Vital Signs (Past 12 Hours) Vital Signs Temp Pulse Pulse Resp BP Pulse Ox O2 Del Method 08/07/22 16:53 139/81 08/07/22 16:08 164/79 H 08/07/22 16:03 36.8 C 92 H 18 169/78 H 95 Room Air 08/07/22 10:53 36.6 C 97 H 18 122/76 94 Room Air 08/07/22 06:59 36.7 C 97 H 18 148/83 H 92 Room Air
[2022-08-07] MEDS: ATORVASTATIN 20 MG TAB PO SCH (21:11)
[2022-08-08 05:58] LABS: Hematocrit (blood only) 33.4 % (34.1-44.9); Hemoglobin 11.2 g/dl (12.0-16.0); Mean Corpuscular Hemoglobin 30.9 pg (25.0-34.0); Mean Corpuscular Hgb Conc 33.5 g/dL (32.0-36.0); Mean Corpuscular Volume 92.3 fL (80.0-100.0); Mean Platelet Volume 10.7 fL (9.4-12.3); Platelet Count 267 K/uL (130-400); RDW Coefficient of Variation 13.2 % (11.5-14.5); RDW Standard Deviation 44.9 fL (36.4-46.3); Red Blood Count 3.62 M/uL (3.93-5.22); White Blood Count 6.57 K/ul (4.8-10.8)
[2022-08-08] MEDS: LEVOTHYROXINE SODIUM 125 MCG TABLET PO SCH (06:04)
[2022-08-08 06:14] LABS: BUN Creatinine Ratio 17.1 (10-20); Creatinine Clr Calc Pharmacy 45.6 ml/min; Est GFR (African American) 82.9 ml/min; Est GFR (Non-African American) 71.5 ml/min; Magnesium 1.9 mg/dl (1.7-2.4); Potassium 4.2 mmol/L (3.5-5.1)
[2022-08-08] MEDS: METOPROLOL SUCC 25MG EXT REL TAB PO SCH ×2 (08:08→20:08)
[2022-08-08] MEDS: APIXABAN 5 MG TABLET PO SCH ×2 (08:08→20:08)
[2022-08-08] MEDS: dilTIAZem HCL 120 MG CAPCR PO SCH (08:08)
--- NOTE | 2022-08-08 10:47 | Cardiology Progress Note ---
Date of Service August 08, 2022 Assessment & Plan (1) Atrial fibrillation with rapid ventricular response: Plan: * Continue metoprolol succinate 75 mg twice daily * Continue Diltiazem CD 120 mg daily. * Continue Eliquis 5 mg twice daily for stroke prophylaxis. * If patient able to walk in the unit, possible discharge. * Of note , pt lives with her son who was just discharged from the hospital post extensive cancer surgery. (2) Left atrial enlargement: Plan: * Suggests that atrial fibrillation and perhaps underlying diastolic dysfunction have been present for quite some time and that a rhythm control strategy would likely be ineffective. * Continue rate control and anticoagulation for atrial fibrillation. Admission and Anticipated Discharge Date Admission Date: August 04, 2022 Subjective Patient seen in follow up. Feeling well. Ongoing atrial fibrillation noted on telemetry, with resting rates in the 90s. Physical Exam Constitutional: WD/WN, vitals as above Neck: trachea midline, no thyromegaly Respiratory: + abnormal respiratory effort, no respiratory distress, no labored breathing and no cough Auscultation: no crackles, no rales and no rhonchi Cardiovascular: Rate/Rhythm: + tachycardic and + irregularly irregular Heart Sounds: no murmur Extremities: no edema Gastrointestinal (Abdomen): normal bowel sounds, soft, nontender, no hepatosplenomegaly Neurologic: PERRL, EOMI, accommodation nl, no face palsy, no dysarthria Results & Data ([facility]) Vital Signs (Past 12 Hours) Vital Signs Temp Pulse Resp BP Pulse Ox O2 Del Method 08/08/22 07:01 36.6 C 85 18 141/80 H 94 Room Air 08/08/22 02:47 36.6 C 90 18 145/98 H 96 Room Air Laboratory Results CBC 08/08/22 Range/Units 05:27 WBC 6.57 (4.8-10.8) K/ul RBC 3.62 L (3.93-5.22) M/uL Hgb 11.2 L (12.0-16.0) g/dl Hct 33.4 L (34.1-44.9) % Plt Count 267 (130-400) K/uL Comprehensive Metabolic Panel 08/08/22 Range/Units 05:27 Sodium 135 L (136-145) mmol/L Potassium 4.2 (3.5-5.1) mmol/L Chloride 101 (98-107) mmol/L Carbon Dioxide 28 (21-32) mmol/L BUN 13 (6-23) mg/dl Creatinine 0.76 (0.6-1.2) mg/dl Glucose 111 H (70-99(Fasting)) mg/dl Calcium 9.0 (8.5-10.1) mg/dl Intake and Output 08/07/22 08/08/22 08/08/22 22:59 06:59 14:59 Intake Total 640 / 640 Output Total 951 / 1751 800 / 1751 Balance -311 / -1111 -800 / -1111 Intake: Oral 640 / 640 Output: Urine 950 / 1750 800 / 1750 # Bowel Movements Other: Weight 65.3 kg Weight Measurement Method Built in [facility]
--- NOTE | 2022-08-08 13:14 | Hospitalist Progress Note ---
Date of Service August 08, 2022 Assessment & Plan (1) SOB (shortness of breath): (2) Atrial fibrillation with rapid ventricular response: (3) HTN (hypertension): (4) HLD (hyperlipidemia): Plan: This is an 87-year-old female with PMHx of A. fib with RVR that was diagnosed in May 2022, HTN, HLD, CKD stage III, hypothyroidism presents to the hospital with worsening shortness of breath on exertion. She was in the ER on 08/03/22 with similar symptoms including fatigue and shortness of breath found to be in Afib with RVR in 120s, was treated with IV cardizem and responded well. EKG performed on arrival yesterday revealed atrial fibrillation 114 bpm. Received lopressor IV and cardizem 10mg x1 in the ER She was placed on carvedilol placed BID 12.5mg on admission Last 2D echo was completed on 07/06/2022, showed LVEF of 60%, diastolic left ventricular dysfunction, mild mitral regurg. cardiology on board Amiodarone drip discontinued today Continue Metoprolol succinate 75 mg BID Continue diltiazem extending release 120mg daily Continue Eliquis 5mg BID Will encourage nurse to assist her with ambulation, if no symptoms might consider to discharge Pleural effusion Complaint of SOB with exertion CXR showed small pleural effusions and bibasilar consolidation. received Lasix 20mg x1 during hospital course Saturated well on RA stable (5) CKD stage 3 due to type 1 diabetes mellitus: Plan: Creatinine 0.86 Stable (6) Hypothyroidism: Plan: Most recent TSH WNL Continue levothyroxine 125 mcg daily DVT ppx: Continue Eliquis BID CODE: Full code Disposition Continue monitor in telemetry Admission and Anticipated Discharge Date Admission Date: August 04, 2022 Subjective Pt was seen and examined for follow up of Afib Lying in bed with no acute distress Denies any chest pain, dizziness and palpitation Review of Systems Review of Systems: All systems reviewed & are unremarkable except as noted in Subjective Physical Exam Physical Exam: General- No acute distress Head- atraumatic Eyes- PERRL, EOMI, ENT- oropharynx clear Neck- supple, no JVD Lungs- +diminished BS Heart- irregular rhythm; no murmur Abdomen- normal bowel sounds, soft, nontender Extremities- no calf tenderness Neuro- alert, oriented x 3; PERRL, EOMI; no facial palsy; no dysarthria Skin- warm & dry Results & Data Results & Data ([facility]) Vital Signs (Past 12 Hours) Vital Signs Temp Pulse Resp BP Pulse Ox O2 Del Method 08/08/22 11:30 36.5 C 82 17 138/90 95 Room Air 08/08/22 07:01 36.6 C 85 18 141/80 H 94 Room Air 08/08/22 02:47 36.6 C 90 18 145/98 H 96 Room Air
[2022-08-08] MEDS: ATORVASTATIN 20 MG TAB PO SCH (20:08)
[2022-08-09] MEDS: LEVOTHYROXINE SODIUM 125 MCG TABLET PO SCH (07:53)
[2022-08-09] MEDS: dilTIAZem HCL 120 MG CAPCR PO SCH (08:34)
[2022-08-09] MEDS: APIXABAN 5 MG TABLET PO SCH (08:34)
[2022-08-09] MEDS: METOPROLOL SUCC 25MG EXT REL TAB PO SCH (08:34)
--- NOTE | 2022-08-09 10:56 | Cardiology Progress Note ---
Date of Service August 09, 2022 Assessment & Plan (1) Atrial fibrillation with rapid ventricular response: Plan: * Continue metoprolol succinate 75 mg twice daily (replaces prior to hospital treatment with carvedilol) * Continue Diltiazem CD 120 mg daily (replaces prior to hospital treatment with amlodipine) * Discontinue prior to hospital treatment with enalapril at time of discharge (no ACEI or ARB has been administered during her hospital stay). * Continue Eliquis 5 mg twice daily for stroke prophylaxis. -Stable from cardiac perspective for discharge today with plan as above. -Patient already has a follow-up visit with me planned in October. -I have messaged the cardiology clinic to request a posthospital follow-up visit with me in 1 to 6 weeks at [facility]. -Case discussed with Dr. Daniels , for the purpose of coordination of care. (2) Left atrial enlargement: Plan: * Suggests that atrial fibrillation and perhaps underlying diastolic dysfunction have been present for quite some time and that a rhythm control strategy would likely be ineffective. * Continue rate control and anticoagulation for atrial fibrillation. Admission and Anticipated Discharge Date Admission Date: August 04, 2022 Subjective Patient seen in cardiology follow-up. Notes feeling well. A little bit of lightheadedness noted this morning, but blood pressure and heart rate were stable at that time. Overall atrial fibrillation rates have trended toward improvement, ventricular rates at rest in the range of 80 to 90 bpm, and the ventricular rate is in the low 110's with exertion. Physical Exam Constitutional: WD/WN, vitals as above Neck: trachea midline, no thyromegaly Respiratory: + abnormal respiratory effort, no respiratory distress, no labored breathing and no cough Auscultation: + diminished lung sounds (Mildly reduced breath sounds bilaterally at the bases); no crackles, no rales and no rhonchi Cardiovascular: Rate/Rhythm: + tachycardic and + irregularly irregular Heart Sounds: no murmur Extremities: no edema Gastrointestinal (Abdomen): normal bowel sounds, soft, nontender, no hepatosplenomegaly Neurologic: PERRL, EOMI, accommodation nl, no face palsy, no dysarthria Results & Data ([facility]) Vital Signs (Past 12 Hours) Vital Signs Temp Pulse Pulse Resp BP BP Pulse Ox 08/09/22 10:38 36.5 C 102 H 20 129/74 96 08/09/22 07:10 36.6 C 101 H 20 144/72 H 95 08/09/22 03:21 36.6 C 81 18 132/80 95 O2 Del Method 08/09/22 10:38 Room Air 08/09/22 07:10 Room Air 08/09/22 03:21 Room Air Laboratory Results Intake and Output 08/08/22 08/09/22 08/09/22 22:59 06:59 14:59 Output Total 500 / 1701 600 / 1701 Balance -500 / -1261 -600 / -1261 Output: Urine 500 / 1700 600 / 1700 Other: Weight 64.9 kg Weight Measurement Method Patient Lift Scale
--- NOTE | 2022-08-09 12:48 | Discharge Summary ---
Date of Service August 09, 2022 Admission HPI Per Admitting Provider This is an 87-year-old female with PMHx of [place] d[place] with RVR that was diagnosed in May 2022, HTN, HLD, CKD stage III, hypothyroidism presents to the hospital with worsening shortness of breath. She was in the ER yesterday with similar symptoms including fatigue and shortness of breath. Yesterday she was treated with IV Cardizem x2 in the ER and discussion was held with [facility] cardiology and patient had symptom improvement with A. fib and heart rate in the 80s at her time of discharge, with no further cardiac symptoms. She reports having worsening shortness of breath which worsened since last y and has progressed. She feels doing basic ADLs such as climbing a flight of 14 stairs is difficult. She denies lightheadedness, dizziness or chest pain. Denies orthopnea or recent weight gain. She reports normally weighing 145 lb and was this yesterday, denies any complaint of edema in legs or hands. She does not require any supplemental O2 at baseline. Pt considers herself very physically active. Previously she used to walk a lot, walking a mile to work and back home every day, and always was walking several miles per day. She reports hx of constipation intermittently, last BM this morning. No issues with urination. Has complaints of burping when she lays down at night most nights. She took all her routinely scheduled medications this morning. Admission Exam Per Admitting Provider General: awake, alert, no apparent distress, appears younger than stated age Head: Normocephalic, atraumatic ENT: PERRL, EOMI, no pharyngeal exudate, mucous membranes moist Chest: Clear to auscultation, on room air, no adventitious breath sounds Cardiac: Irregularly irregular, HR in 100s, no murmur, no JVD, normal peripheral pulses, good capillary refill Abdominal: NABS x 4 quadrants, soft, nondistended, nontender to palpation, no rebound or guarding Back: lipoma over right upper back measuring approx 7cm x 6 cm. Extremities: Normal inspection, no peripheral edema or erythema, calfs nontender to palpation Psych: Normal mood and affect Neuro: AAO x 3, strength intact bilaterally and rated 5/5, no motor deficits, speech is clear, no peripheral sensory deficits Principal Diagnosis SOB (shortness of breath): Atrial fibrillation with rapid ventricular response: HTN (hypertension): HLD (hyperlipidemia): Pleural effusion CKD stage 3 due to type 1 diabetes mellitus: Hypothyroidism: Discharge Exam General- No acute distress Head- atraumatic Eyes- PERRL, EOMI, ENT- oropharynx clear Neck- supple, no JVD Lungs- +diminished BS Heart- irregular rhythm; no murmur Abdomen- normal bowel sounds, soft, nontender Extremities- no calf tenderness Neuro- alert, oriented x 3; PERRL, EOMI; no facial palsy; no dysarthria Skin- warm & dry Discharge Data Allergies Allergy/AdvReac Type Severity Reaction Status Date / Time No Known Allergies Allergy Verified 08/04/22 15:03 Consultations 08/04/22 14:15 ED Decision to Admit Stat 08/04/22 16:20 Consult Cardiology Routine Consult Cardiology Routine Ordered Studies Laboratory Results WBC 6.57 K/ul (4.8-10.8) 08/08/22 05:27 RBC 3.62 M/uL (3.93-5.22) L 08/08/22 05:27 Hgb 11.2 g/dl (12.0-16.0) L 08/08/22 05:27 Hct 33.4 % (34.1-44.9) L 08/08/22 05:27 MCV 92.3 fL (80.0-100.0) 08/08/22 05:27 MCH 30.9 pg (25.0-34.0) 08/08/22 05:27 MCHC 33.5 g/dL (32.0-36.0) 08/08/22 05:27 RDW Std Deviation 44.9 fL (36.4-46.3) 08/08/22 05:27 RDW Coeff of Cheri 13.2 % (11.5-14.5) 08/08/22 05:27 Plt Count 267 K/uL (130-400) 08/08/22 05:27 MPV 10.7 fL (9.4-12.3) 08/08/22 05:27 Immature Gran % (Auto) 0.3 % 08/04/22 12:55 Neut % (Auto) 74.2 % 08/04/22 12:55 Lymph % (Auto) 18.2 % 08/04/22 12:55 [place] % (Auto) 6.4 % 08/04/22 12:55 Eos % (Auto) 0.4 % 08/04/22 12:55 Baso % (Auto) 0.5 % 08/04/22 12:55 Neut # (Auto) 5.65 K/uL (1.4-6.5) 08/04/22 12:55 Lymph # (Auto) 1.39 K/uL (1.2-3.4) 08/04/22 12:55 [place] # (Auto) 0.49 K/uL (0.24-0.82) 08/04/22 12:55 Eos # (Auto) 0.03 K/uL (0-0.50) 08/04/22 12:55 Baso # (Auto) 0.04 K/uL (0-0.2) 08/04/22 12:55 Immature Gran # (Auto) 0.02 K/uL (0.00-0.02) 08/04/22 12:55 PT 11.2 Seconds (9.0-12.0) 08/04/22 12:55 INR 1.1 (0.9-1.1) 08/04/22 12:55 APTT 28.6 Seconds (21.0-31.0) 08/04/22 12:55 PTT Ratio 1.0 08/04/22 12:55 Sodium 135 mmol/L (136-145) L 08/08/22 05:27 Potassium 4.2 mmol/L (3.5-5.1) 08/08/22 05:27 Chloride 101 mmol/L (98-107) 08/08/22 05:27 Carbon Dioxide 28 mmol/L (21-32) 08/08/22 05:27 Anion Gap 6 (3-11) 08/08/22 05:27 BUN 13 mg/dl (6-23) 08/08/22 05:27 Creatinine 0.76 mg/dl (0.6-1.2) 08/08/22 05:27 Est Cr Clr Drug Dosing 45.6 ml/min 08/08/22 05:27 Est GFR ( Amer) 82.9 ml/min 08/08/22 05:27 Est GFR (Non-Af Amer) 71.5 ml/min 08/08/22 05:27 BUN/Creatinine Ratio 17.1 (10-20) 08/08/22 05:27 Glucose 111 mg/dl (70-99(Fasting)) H 08/08/22 05:27 Estimat Average Glucose 137 mg/dl 08/05/22 06:02 Hemoglobin A1c 6.4 % (4.5-5.6) H 08/05/22 06:02 Calcium 9.0 mg/dl (8.5-10.1) 08/08/22 05:27 Magnesium 1.9 mg/dl (1.7-2.4) 08/08/22 05:27 Total Bilirubin 0.4 mg/dl (0.2-1.0) 08/04/22 12:55 AST 14 U/L (13-39) 08/04/22 12:55 ALT 18 U/L (7-52) 08/04/22 12:55 Alkaline Phosphatase 71 U/L (34-104) 08/04/22 12:55 Troponin I High Sens 6.8 pg/ml (0-14) 08/04/22 12:55 Total Protein 7.2 gm/dl (6.0-8.3) 08/04/22 12:55 Albumin 4.3 gm/dl (3.4-5.0) 08/04/22 12:55 Globulin 2.9 gm/dl (2.5-4.0) 08/04/22 12:55 Albumin/Globulin Ratio 1.5 (0.9-2) 08/04/22 12:55 Triglycerides 85 mg/dl (0-150) 08/05/22 06:02 Cholesterol 107 mg/dl (0-200) 08/05/22 06:02 LDL Cholesterol, Calc 55 mg/dl 08/05/22 06:02 VLDL Cholesterol, Calc 17 mg/dl (0-30) 08/05/22 06:02 HDL Cholesterol 35 mg/dl 08/05/22 06:02 Cholesterol/HDL Ratio 3.1 (0-5) 08/05/22 06:02 SARS-CoV-2, RNA, NAAT NEGATIVE (NEGATIVE) 08/04/22 14:25 Impressions Chest X-Ray 08/04/22 11:24 SINGLE VIEW CHEST CLINICAL HISTORY: Dyspnea FINDINGS: An AP, portable, upright chest radiograph is compared to study dated 08/03/2022. The heart is enlarged noting atherosclerotic calcification of the thoracic aorta. There is prominence of the pulmonary vascular appear There are small pleural effusions and bibasilar consolidation. No pneumothorax is seen. The skeletal structures are osteopenic. The bony thorax is grossly intact. Arthritic change is seen in the shoulders. Generative change in scoliosis is noted in the thoracic spine. IMPRESSION: 1. Small pleural effusions and bibasilar consolidation. This is similar to yesterday. 2. Cardiomegaly with prominence of the pulmonary vasculature. Correlate clinically for evidence of fluid overload/congestive change. ACT 112: Negative or not required by law. Electronically signed by: Rhett Gaxiola M.D. 08/04/2022 12:06 PM Hospital Course (1) SOB (shortness of breath): (2) Atrial fibrillation with rapid ventricular response: (3) HTN (hypertension): (4) HLD (hyperlipidemia): This is an 87-year-old female with PMHx of A. fib with RVR that was diagnosed in May 2022, HTN, HLD, CKD stage III, hypothyroidism presents to the hospital with worsening shortness of breath on exertion. She was in the ER on 08/03/22 with similar symptoms including fatigue and shortness of breath found to be in Afib with RVR in 120s, was treated with IV cardizem and responded well. EKG performed on arrival yesterday revealed atrial fibrillation 114 bpm. Received lopressor IV and cardizem 10mg x1 in the ER She was placed on carvedilol placed BID 12.5mg on admission Last 2D echo was completed on 07/06/2022, showed LVEF of 60%, diastolic left ventricular dysfunction, mild mitral regurg. cardiology on board Amiodarone drip discontinued today Continue Metoprolol succinate 75 mg BID Continue diltiazem extending release 120mg daily Continue Eliquis 5mg BID Will encourage nurse to assist her with ambulation, if no symptoms might consider to discharge Case discussed with cardiology to discharge on cardizem 120mg and metoprolol 75mg Ok from cardiology standpoint to discharge home today Pleural effusion Complaint of SOB with exertion CXR showed small pleural effusions and bibasilar consolidation. received Lasix 20mg x1 during hospital course Saturated well on RA stable (5) CKD stage 3 due to type 1 diabetes mellitus: Creatinine 0.86 Stable (6) Hypothyroidism: Most recent TSH WNL Continue levothyroxine 125 mcg daily DVT ppx: Continue Eliquis BID CODE: Full code Disposition discharge home today Total Time Total Time Spent Total Time Spent (In Minutes): 35 minutes Discharge Plan Discharge Items Patient Disposition: Home - Self-Care Reason For Visit: AFIB WITH RVR Discharge Diagnosis: SOB (shortness of breath): Atrial fibrillation with rapid ventricular response: HTN (hypertension): HLD (hyperlipidemia): Pleural effusion CKD stage 3 due to type 1 diabetes mellitus: Hypothyroidism: Activity: Resume your previous activity Non-emergency contact: Primary Care Provider and Legal Referee Call non-emergency contact if: you have any medication questions and your symptoms worsen Follow-up/Referrals: Chris Rolon DO [Legal Referee] - (The cardiology office will call you with a follow up appointment.) Victorino Coley MD [Primary Care Provider] - (Date & Time 08/16/2022 11:20 AM Provider Victorino Coley MD Department Family Medicine [facility] ) Diet: Heart Healthy Addtl Attending Provider Instructions: Follow up with your primary care provider 08/16/2022 @ 11:20 AM Victorino Coley MD Department [facility] Follow up with cardiology in 2 to 4 weeks ( office will call you for the appointment ) Continue monitor for abnormal bleeding while on Eliquis Seek medical attention if your symptoms worsening Medications discontinued Enalapril 10mg Amlodipine 5mg carvedilol 12.5 mg New medications Diltiazem 120 mg daily Metoprolol 75mg twice a day Pending Studies at Discharge: No Stand-Alone Forms: My [facility] Provade, Smoking Cessation Medications and DC Order Prescriptions: New diltiazem HCl [Cardizem CD] 120 mg Capsule,Extended Release 24hr 120 mg PO QAM 30 Days Qty: 30 0RF metoprolol succinate 25 mg Tablet Extended Release 24 Hr 75 mg PO BID 30 Days Qty: 180 0RF Continued atorvastatin 20 mg tablet 20 mg PO QPM alendronate 70 mg tablet 70 mg PO WK Rx Instructions: sundays levothyroxine 125 mcg tablet 125 mcg PO DAILYBB Eliquis 5 mg tablet 5 mg PO BID Qty: 60 0RF Discontinued enalapril maleate 10 mg tablet 10 mg PO QAM amlodipine 5 mg tablet 5 mg PO DAILY carvedilol [Coreg] 12.5 mg tablet 12.5 mg PO BID Qty: 60 0RF Rx Instructions: must administer with a meal/food Discharge Orders: Discharge Order (Routine); Ordered 08/09/22 Ordered By: Es Strange/Other Patient Handouts: A1C Admission Data Admit Date/Time: 08/04/22 15:09 Attending Provider: Es Li Admit Provider: Erika Tejeda Primary Care Provider: Victorino Coley Other Providers: Dameon Dacosta ; Erika Tejeda
== END 2022-08-09 13:43 | disposition home or self-care (01) | DRG 309 ==
LOC: ED 11:18 → SUATTDRO 15:09 → 2E 15:09